=== PATIENT | male | born 1965 | race Caucasian/White ===

== ENCOUNTER 2020-01-16 05:21 | Emergency (ER) | payer OTHER ==
[~2020-01-16] VITALS: Ht 175.3 cm; Wt 157.0 kg
[2020-01-16] MEDS ORDERED: SODIUM CHLORIDE FLUSH 10ML SYR IVF ONE (05:30)
[2020-01-16] MEDS ORDERED: HYDROmorphone 1 MG/ML, 1ML INJ ONE ×2 (05:34→06:40)
[2020-01-16] MEDS: HYDROmorphone 1 MG/ML, 1ML INJ IVPush PRN ×2 (05:35→06:42)
--- NOTE | 2020-01-16 05:43 | NUR ---
STRAIGHT CATH ATTEMPTED, UNABLE TO ADVANCE COUDE PAST URETHRAL STRICTURE. MD AWARE, WILL CONTINUE TO MONITOR.
[2020-01-16] MEDS ORDERED: PLEASE ENTER ALLERGIES MC SCH (06:00)
[2020-01-16] MEDS ORDERED: PLEASE ENTER HEIGHT AND WEIGHT MC SCH (06:00)
--- NOTE | 2020-01-16 06:42 | NUR ---
UROLOGY CART AT BEDSIDE.
--- NOTE | 2020-01-16 06:53 | NUR ---
SBAR RPT REC'D AND PT CARE ASSUMED. PT SITTING UP ON EDGE OF [facility]. PT WAS SEEN BY DR ARSAHD BUT IS UNSURE OF POC. INFORMED PT THAT I WOULD REVIEW WITH MD AND UPDATE HIM. CALL LIGHT W/I REACH.
[2020-01-16] MEDS ORDERED: LIDOCAINE 1%, 20ML ONE (07:23)
[2020-01-16] MEDS ORDERED: NALOXONE 1 MG/ML, 2ML ONE (07:56)
[2020-01-16] MEDS ORDERED: MIDAZOLAM 1 MG/ML, 5ML ONE (07:56)
[2020-01-16] MEDS ORDERED: FLUMAZENIL 0.1 MG/1 ML, 5ML ONE (07:56)
[2020-01-16] MEDS ORDERED: FENTANYL PF 100 MCG/2ML ONE (07:56)
--- NOTE | 2020-01-16 08:11 | NUR ---
SBAR RPT TO LUNCH TRUCK DRIVER, PT TO RADIOLOGY VIA [facility].
--- NOTE | 2020-01-16 09:08 | NUR ---
PT RTD FROM RADIOLOGY, SBAR RPT REC'D FROM RN AND PT CARE ASSUMED. SUPRA PUBIC SITE CDI, RESTREPO BAG TO D/D. PT DENIES PAIN, VSS. CALL LIGHT W/I REACH
[2020-01-16 09:33] LABS: MICROSCOPIC AUTO
[2020-01-16 09:34] VITALS: BP 153/80
--- NOTE | 2020-01-16 10:36 | NUR ---
CATHETER CARE, LEG BAG USE REVIEWED AND QUESTIONS ANSWERED. PT READY FOR D/C, AWAITING 'S ARRIVAL
--- NOTE | 2020-01-16 12:03 | NUR ---
PT HERE, PT TO CAR VIA WHEELCHAIR. D/C INST AND POST SEDATION PRECAUTIONS DISCUSSED AND QUESTIONS ANSWERED.
== END 2020-01-16 10:37 | disposition home or self-care (01) ==
LOC: ED 06:41
DX: R33.8 Other retention of urine (principal); Z90.89 Acquired absence of other organs
CPT/HCPCS: 75989; 81001; 87086; 99284; C1725; C1769; J1170; J2250; J3010; J3490; J2310

== ENCOUNTER 2020-05-07 08:00 | Outpatient (CLI) | payer OTHER | END 2020-05-07 23:59 | disposition home or self-care (01) | LOC: LAB 08:00 → EDSTATUS 05-09 14:00 | PROVIDERS: ATTEND Urology | DX: Z01.818 Encounter for other preprocedural examination (principal); N35.013 Post-traumatic anterior urethral stricture; Z72.89 Other problems related to lifestyle; Z20.828 Contact with and (suspected) exposure to other viral communicable diseases | CPT/HCPCS: 87635 ==